=== PATIENT | female | born 1965 | race Hispanic/Latino ===

== ENCOUNTER 2018-02-16 22:25 | Emergency (ER) | payer MEDICAID, SELFPAY ==
[2018-02-17] MEDS: LISINOPRIL 40 MG TAB PO ×2 (00:45)
[2018-02-17] MEDS: amLODIPine 5 MG TAB PO ×2 (00:45)
[2018-02-17] MEDS: CHLORTHALIDONE 12.5MG PER 1/2 TABLET PO ×2 (00:45)
== END 2018-02-17 01:18 | disposition home or self-care (01) ==
LOC: M ED 22:25
DX: Z76.0 Encounter for issue of repeat prescription (principal); I10 Essential (primary) hypertension; E11.9 Type 2 diabetes mellitus without complications; Z79.899 Other long term (current) drug therapy; Z79.84 Long term (current) use of oral hypoglycemic drugs; F17.210 Nicotine dependence, cigarettes, uncomplicated
CPT/HCPCS: 70450

== ENCOUNTER → 2018-06-13 | Outpatient (CLI) | payer OTHER ==
[~2018-06-13] MED LIST: AMLO10TA5 PO; CHLO125TA PO; LIPI10TA PO; LISI40TA PO; METF500T13 PO
[2018-06-13 12:11] LABS: MALB URINE SIEMENS 58.2 MG/L; MAU/CREAT RATIO 34.6 MCG/MG (0.0-30.0)
[2018-06-13 12:26] LABS: HEMOGLOBIN A1c 12.3 %
[2018-06-13 12:42] LABS: ALBUMIN 3.9 GM/DL (3.2-5.2); BLOOD UREA NITROGEN 12 MG/DL (7-18); CALCIUM LEVEL 8.4 MG/DL (8.5-10.1); CARBON DIOXIDE LEVEL 30 MEQ/L (21-32); CHLORIDE LEVEL 96 MEQ/L (98-107); CHOLESTEROL LEVEL 242 MG/DL (<200); CHOLESTEROL RISK RATIO 12.736 (<5); CREATININE FOR GFR 0.67 MG/DL (0.55-1.30); GLOMERULAR FILTRATION RATE > 60.0 (>51); GLUCOSE, FASTING 341 MG/DL (70-100); HDL CHOLESTEROL 19 MG/DL (>40); NON-HDL-C 223 MG/DL; PHOSPHORUS LEVEL 3.5 MG/DL (2.5-4.9); POTASSIUM SERUM 3.3 MEQ/L (3.5-5.1); SODIUM LEVEL 135 MEQ/L (136-145); TRIGLYCERIDES LEVEL 2022 MG/DL (<150)
== END ==
LOC: M LAB 10:57
PROVIDERS: ATTEND Obstetrics & Gynecology
DX: E11.9 Type 2 diabetes mellitus without complications (principal); I10 Essential (primary) hypertension; E78.5 Hyperlipidemia, unspecified

== ENCOUNTER → 2018-08-08 | Outpatient (CLI) | payer OTHER ==
[~2018-08-08] MED LIST changes: +GASTROGRAFIN SOLUTION 30ML (Q9963) As Ordered ONE; +ISOVUE-370 76% 100ML VIAL (Q9967) As Ordered ONE
--- NOTE | 2018-08-10 15:21 | REP ---
Clinical: Epigastric pain. Technique: Axial contrast enhanced images of the abdomen using oral (per protocol) and 100 ml Isovue 370 intravenous contrast material with coronal and sagittal re-formations. Findings: Lung bases are essentially clear. Atherosclerotic changes to the coronary arteries noted without cardiomegaly. Diffuse hepatic steatosis is appreciated without significant focal hepatic lesion. Spleen, pancreas, gallbladder, bilateral adrenal glands and kidneys are normal. Incidental 1 cm left renal hypodensity compatible with cyst. Visualized enteric system is without obstruction or acute inflammatory process. No ascites. No free air. No adenopathy. Abdominal aorta without aneurysm. Visualized skeletal structures intact without focal osseous abnormality. Impression: 1. Hepatic steatosis. 2. 1 cm left renal hypodensity compatible with cyst. 3. Atherosclerotic changes to the visualized coronary arteries and aorta. Electronically Signed by Luis Carlos Frye MD 08/10/2018 03:12 P
== END ==
LOC: M RAD 09:57
PROVIDERS: ATTEND Obstetrics & Gynecology
DX: K76.0 Fatty (change of) liver, not elsewhere classified (principal); I25.10 Atherosclerotic heart disease of native coronary artery without angina pectoris; N28.89 Other specified disorders of kidney and ureter
CPT/HCPCS: 74160; Q9963; Q9967

== ENCOUNTER → 2018-08-24 | Outpatient (CLI) | payer OTHER ==
[~2018-08-24] MED LIST changes: -GASTROGRAFIN SOLUTION 30ML (Q9963) As Ordered ONE; -ISOVUE-370 76% 100ML VIAL (Q9967) As Ordered ONE
[2018-08-24 10:18] LABS: ALBUMIN 4.1 GM/DL (3.2-5.2); ALT/SGPT 57 U/L (12-78); BILIRUBIN,TOTAL 0.4 MG/DL (0.2-1.0); BLOOD UREA NITROGEN 13 MG/DL (7-18); CARBON DIOXIDE LEVEL 34 MEQ/L (21-32); CHLORIDE LEVEL 96 MEQ/L (98-107); CREATININE FOR GFR 0.81 MG/DL (0.55-1.30); GLOMERULAR FILTRATION RATE > 60.0 (>51); GLUCOSE, FASTING 198 MG/DL (70-100); POTASSIUM SERUM 3.3 MEQ/L (3.5-5.1); SODIUM LEVEL 138 MEQ/L (136-145); TOTAL PROTEIN 7.7 GM/DL (6.4-8.2)
--- NOTE | 2018-08-25 19:12 | REP ---
Clinical: Hepatic steatosis. Technique: Real time bridges scale ultrasound examination using curved array transducer. Findings: The liver is diffusely increased echogenicity with poor through transmission suggesting fatty infiltration. No focal hepatic lesion identified. The pancreas is incompletely evaluated due to interposed bowel gas but visualized portions appear normal. The gallbladder is unremarkable and without gallstones, wall thickening, or pericholecystic fluid. No biliary ductal dilatation is appreciated and the common bile duct measures 6.0 mm diameter. The right kidney is normal in reniform shape without hydronephrosis and measures 11.8 x 6.2 x 4.4 cm. Ascites. Impression: 1. Hepatic steatosis without focal hepatic lesion identified. Electronically Signed by Luis Carlos Frye MD 08/25/2018 07:04 P
== END ==
LOC: M RAD 08:49
PROVIDERS: ATTEND Student in an Organized Health Care Education/Training Program
DX: K76.0 Fatty (change of) liver, not elsewhere classified (principal); R10.13 Epigastric pain

== ENCOUNTER → 2018-09-15 | Outpatient (CLI) | payer OTHER ==
[2018-09-15 14:18] LABS: INR 0.92; PROTHROMBIN TIME 12.4 SECONDS (12.1-14.4)
[2018-09-15 14:19] LABS: PARTIAL THROMBOPLASTIN TIME 30.3 SECONDS (25.4-37.6)
[2018-09-15 14:38] LABS: FERRITIN 146 NG/ML (8-252); HEPATITIS B SURFACE ANTIGEN NEGATIVE (NEGATIVE); IRON (FE) 71 UG/DL (50-170)
[2018-09-15 15:02] LABS: HEPATITIS C VIRUS ABY INDEX 0.1 INDEX (<0.8)
[2018-09-15 15:03] LABS: HEPATITIS B CORE ANTIBODY IGM NEGATIVE (NEGATIVE)
[2018-09-15 15:06] LABS: HEPATITIS A ANTIBODY IGM NEGATIVE (NEGATIVE)
== END ==
LOC: M LAB 13:07
PROVIDERS: ATTEND Student in an Organized Health Care Education/Training Program
DX: K76.0 Fatty (change of) liver, not elsewhere classified (principal)

== ENCOUNTER 2019-02-14 17:30 | Emergency (ER) | payer OTHER ==
[~2019-02-14] VITALS: Ht 157.5 cm; Wt 64.7 kg
[2019-02-14] MEDS ORDERED: CYCLOBENZAPRINE 5MG TABLET PO ONE (19:00)
[2019-02-14] MEDS ORDERED: ACETAMINOPHEN 325 MG TAB PO ONE (19:00)
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
[2019-02-14] MEDS ORDERED: CYCL5TAB PO (22:42)
[2019-02-14 22:49] VITALS: BP 125/68
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
--- NOTE | 2019-02-20 12:55 | ED PDOC ---
Post-Departure Follow-Up certified letter sent to pt re formal read of ct abd/p. see report. needs fu . o btain pcp name and fax for fu. if no pcp refer to [facility] and fax there.Debbie Hastings MD Feb 20, 2019 12:55
== END 2019-02-14 22:53 | disposition home or self-care (01) ==
LOC: M ED 17:30
DX: S22.31XA Fracture of one rib, right side, initial encounter for closed fracture (principal); S16.1XXA Strain of muscle, fascia and tendon at neck level, initial encounter; R51 Headache; V43.52XA Car driver injured in collision with other type car in traffic accident, initial encounter; Y92.410 Unspecified street and highway as the place of occurrence of the external cause

== ENCOUNTER 2019-02-15 10:49 | Emergency (ER) | payer OTHER ==
[~2019-02-15] VITALS: Ht 157.5 cm; Wt 65.3 kg
[~2019-02-15 10:49] MED LIST changes: +CYCL5TAB PO
[2019-02-15] MEDS ORDERED: ISOVUE-370 76% 100ML VIAL (Q9967) As Ordered ONE (11:47)
--- NOTE | 2019-02-15 12:49 | REP ---
CT pulmonary angiogram: With IV contrast. History: Question pericardial effusion. Comparison CT study abdomen and pelvis from the previous day. Comparison chest x-ray from February 14, 2019. Contrast dose: 75 ML of Isovue [address] technique: Helical scanning is acquired and overlapping 1.5 mm and contiguous 3 mm axial images are reformatted. In addition, maximum intensity projection and multiplanar re-formation images are generated in sagittal and coronal imaging projections. CT pulmonary angiographic findings: There is good opacification of the pulmonary arterial tree. No filling defect is seen. The thoracic aorta enhances homogeneously and is normal in course and caliber. No aneurysm or dissection is apparent. Is no evidence of mediastinal hematoma. No mass or adenopathy is seen. No pleural effusion is noted. There is however a small to moderate amount of pericardial fluid visible. This is unchanged from yesterday's abdominal CT study. There is more pericardial fluid than can be seen on CT study from August 08, 2018. The lung murdock are clear. There are mild emphysematous changes in the apices. Impression: Small to moderate pericardial effusion seen, increased from August 08, 2018, unchanged from yesterday's abdomen CT study. Etiology uncertain. No mediastinal hematoma seen. No evidence of aortic injury or pulmonary embolus. No traumatic bony abnormality. Electronically Signed by Mukesh Simon MD 02/15/2019 12:41 P
--- NOTE | 2019-02-15 18:20 | ECHO ---
DATE OF PROCEDURE: 02/15/2019 REFERRING PHYSICIAN: Dr. Bae INDICATION: Pericardial effusion. Height 157 cm, weight 65 kg. DIMENSIONS: IVS: 1.3 LV: 4.6 LVPW: 1.3 Aorta: 2.9 LA: 3.5 RV: 2.9 IVC: 1.3 Mitral E wave velocity: 63 A wave: 96 E prime septal: 6.1 E prime lateral: 6.2 FINDINGS: The study is of good technical quality. The patient is in sinus rhythm. Left ventricle is of normal size and systolic function, estimated left ventricular ejection fraction (LVEF) around 70%. Mild left ventricular hypertrophy (LVH) is present. Right ventricle is also normal size and systolic function. Both atria appear normal. Aortic, mitral, tricuspid and pulmonic valves all appear normal. Trace pericardial effusion is noted. There are no signs of cardiac compression. Inferior vena cava is normal size. Aortic root, aortic arch and visualized segment of abdominal aorta all appear normal. Doppler interrogation of aortic valve reveals no stenosis or insufficiency. There is also no significant mitral stenosis or insufficiency. Trace tricuspid insufficiency is seen but quality of TR jet is not sufficiently good in order to estimate pulmonary artery pressure. Pulmonic valve is functionally competent. Mitral inflow pattern and tissue Doppler imaging mitral annulus revealed grade 1 diastolic dysfunction. CONCLUSIONS: 1. The study is of good technical quality. 2. Normal LV size with mild LVH, hyperdynamic LV systolic function and grade 1 diastolic dysfunction. 3. No hemodynamically significant valvular disease. 4. Normal central venous pressure. 5. Trace pericardial effusion. COMMENTS: Subacute bacterial endocarditis (SBE) prophylaxis is not recommended. Results of the echocardiogram were communicated to Dr. Bae in the emergency room. [facility]
[2019-02-15 18:47] VITALS: BP 135/81
--- NOTE | 2019-02-20 12:08 | ED PDOC ---
Post-Departure Follow-Up dr kowalski faxed formal report of cta chest for fu Debbie Petersen MD Feb 20, 2019 12:08
== END 2019-02-15 18:40 | disposition home or self-care (01) ==
LOC: M ED 10:49
DX: I31.3 Pericardial effusion (noninflammatory) (principal); R51 Headache; E78.9 Disorder of lipoprotein metabolism, unspecified; E11.9 Type 2 diabetes mellitus without complications; F17.200 Nicotine dependence, unspecified, uncomplicated; Z79.899 Other long term (current) drug therapy; Z79.84 Long term (current) use of oral hypoglycemic drugs
CPT/HCPCS: 36415; 71275; 80047; 99284; Q9967

== ENCOUNTER 2019-03-29 21:45 | Emergency (ER) | payer OTHER, SELFPAY ==
[~2019-03-29] VITALS: Ht 157.5 cm; Wt 66.2 kg
[2019-03-29 22:20] LABS: BASO # 0.1 10^3/uL (0.0-0.2); BASO % 0.4 % (0.0-1.0); EOS # 0.1 10^3/uL (0.0-0.5); EOS % 0.6 % (0.0-3.0); HEMOGLOBIN 13.7 g/dl (12.0-15.5); LYMPH # 3.2 10^3/uL (1.5-5.0); LYMPH % 21.4 % (24.0-44.0); MEAN CORPUSCULAR HEMOGLOBIN 28.8 pg (27.0-33.0); MEAN CORPUSCULAR HGB CONC 36.1 g/dl (32.0-36.5); MONO # 0.9 10^3/uL (0.0-0.8); MONO % 6.3 % (0.0-5.0); NEUTROPHILS # 10.4 10^3/uL (1.5-8.5); NEUTROPHILS % 70.9 % (36.0-66.0); PLATELET COUNT, AUTOMATED 302 10^3/uL (150-450); RED BLOOD COUNT 4.75 10^6/uL (4.00-5.40); WHITE BLOOD COUNT 14.7 10^3/uL (4.0-10.0)
[2019-03-29 22:54] LABS: BLOOD UREA NITROGEN 15 MG/DL (7-18); CALCIUM LEVEL 9.2 MG/DL (8.5-10.1); CARBON DIOXIDE LEVEL 28 MEQ/L (21-32); CHLORIDE LEVEL 102 MEQ/L (98-107); CK-MB VALUE MASS < 1.0 NG/ML (<3.6); CPK CREATINE PHOSPHOKINASE 102 U/L (26-192); CREATININE FOR GFR 1.41 MG/DL (0.55-1.30); GLOMERULAR FILTRATION RATE 41.2 (>51); GLUCOSE, FASTING 231 MG/DL (70-100); MB/CK RELATIVE INDEX 0.98 (< OR =4); POTASSIUM SERUM 3.3 MEQ/L (3.5-5.1); SODIUM LEVEL 141 MEQ/L (136-145); TROPONIN I < 0.02 NG/ML (< 0.10)
[2019-03-29] MEDS ORDERED: NS 1,000 ML IV ONE (23:15)
[2019-03-30] MEDS ORDERED: ACETAMINOPHEN 500 MG TAB As Ordered ONE (01:42)
[2019-03-30 02:21] LABS: CK-MB VALUE MASS < 1.0 NG/ML (<3.6); CPK CREATINE PHOSPHOKINASE 93 U/L (26-192); MB/CK RELATIVE INDEX 1.08 (< OR =4); TROPONIN I < 0.02 NG/ML (< 0.10)
[2019-03-30 02:41] VITALS: BP 121/79
--- NOTE | 2019-03-30 12:20 | REP ---
Clinical: Shortness of breath and chest pain . Comparison: 02/14/2019 . Technique: PA and lateral. Findings: The mediastinum and cardiac silhouette are normal. The lung murdock the straight scattered chronic changes (right greater than left) without acute consolidation, effusion, or pneumothorax. The skeletal structures are intact and normal. Impression: 1. No acute cardiopulmonary process. Electronically Signed by Luis Carlos Frye MD 03/30/2019 12:12 P
--- NOTE | 2019-03-30 21:25 | ECGEPIP ---
[facility] - ED Test Date: 2019-03-29 Pat Name: LINCOLN REIS Department: Room: - Gender: Female Sales And Events Coordinator: RACHELE : 1965 Requested By: GENOVEVA MUHAMMAD Order Number: [id number] Reading MD: Shelia Francis Measurements Intervals [place] Rate: 95 P: 55 NH: 176 QRS: 38 QRSD: 83 T: 65 QT: 356 QTc: 449 Interpretive Statements SINUS RHYTHM POSSIBLE LEFT ATRIAL ENLARGEMENT POSSIBLE LEFT VENTRICULAR HYPERTROPHY NONSPECIFIC T-WAVE ABNORMALITY NO PRIOR Electronically Signed on 03-30-2019 21:25:02 EDT by Shelia Francis
--- NOTE | 2019-03-30 21:26 | ECGEPIP ---
[facility] - ED Test Date: 2019-03-30 Pat Name: LINCOLN REIS Department: Room: - Gender: Female Services Delivery Driver: wv : 1965 Requested By: GENOVEVA MUHAMMAD Order Number: [id number] Reading MD: Shelia Francis Measurements Intervals [place] Rate: 83 P: 52 OR: 176 QRS: 25 QRSD: 85 T: 63 QT: 376 QTc: 443 Interpretive Statements SINUS RHYTHM NONSPECIFIC T-WAVE ABNORMALITY DECREASED RATE 03/29/19 Electronically Signed on 03-30-2019 21:25:55 EDT by Shelia Francis
== END 2019-03-30 02:42 | disposition home or self-care (01) ==
LOC: M ED 21:45
DX: E86.0 Dehydration (principal); E11.9 Type 2 diabetes mellitus without complications; I10 Essential (primary) hypertension; K21.9 Gastro-esophageal reflux disease without esophagitis; Z79.899 Other long term (current) drug therapy; Z79.84 Long term (current) use of oral hypoglycemic drugs; F17.210 Nicotine dependence, cigarettes, uncomplicated

== ENCOUNTER 2023-04-22 17:38 | Emergency (ER) | payer MEDICAID, OTHER, SELFPAY ==
[~2023-04-22] VITALS: Ht 157.5 cm; Wt 64.6 kg
[~2023-04-22 17:38] MED LIST changes: -AMLO10TA5 PO; +AMLO1TAB25 PO; -LISI40TA PO; +LISI40TA4 PO
[2023-04-22] MEDS ORDERED: LISI10TA22 PO (17:51)
[2023-04-22] MEDS ORDERED: KETOROLAC 60MG 2ML VIAL IM ONE (19:55)
[2023-04-22] MEDS ORDERED: methocarbamoL 500 MG TAB PO ONE (19:55)
[2023-04-22] MEDS ORDERED: METH-1164 PO (21:25)
[2023-04-22] MEDS ORDERED: MEDR4PAK PO (21:25)
[2023-04-22 21:47] VITALS: BP 135/82; TEMP 97; O2SAT 97
== END 2023-04-22 21:50 | disposition home or self-care (01) ==
LOC: M ED 17:38
DX: M54.9 Dorsalgia, unspecified (principal); E11.9 Type 2 diabetes mellitus without complications; I10 Essential (primary) hypertension; E78.5 Hyperlipidemia, unspecified; K21.9 Gastro-esophageal reflux disease without esophagitis; F17.200 Nicotine dependence, unspecified, uncomplicated; Z79.899 Other long term (current) drug therapy
CPT/HCPCS: 72072; 96372; 99283; J1885

== ENCOUNTER → 2025-02-15 | Outpatient (CLI) | payer OTHER ==
[~2025-02-15] MED LIST changes: -CYCL5TAB PO; +CYCL5TAB4 PO; +LISI10TA22 PO; +LISI40TA10 PO; -LISI40TA4 PO; +MEDR4PAK PO; +METH-1164 PO
== END ==
LOC: M SOG 07:31
PROVIDERS: ATTEND Orthopaedic Surgery
DX: M25.531 Pain in right wrist (principal); M25.532 Pain in left wrist

== ENCOUNTER → 2025-02-28 | Outpatient (REF) | payer OTHER, MEDICAID ==
[2025-02-28 14:28] LABS: BASO # 0.1 10^3/uL (0.0-0.2); BASO % 0.7 % (0.0-1.0); EOS # 0.1 10^3/uL (0.0-0.5); EOS % 1.3 % (0.0-3.0); LYMPH # 3.8 10^3/uL (1.5-5.0); LYMPH % 46.3 % (24.0-44.0); MONO # 0.6 10^3/uL (0.0-0.8); MONO % 7.6 % (2.0-8.0); NEUTROPHILS # 3.6 10^3/uL (1.5-8.5); NEUTROPHILS % 43.9 % (36.0-66.0); PLATELET COUNT, AUTOMATED 256 10^3/uL (150-450)
[2025-02-28 14:40] LABS: ALT/SGPT 27 U/L (7.0-40); AST/SGOT 16 U/L (<34); CALCIUM LEVEL 9.5 MG/DL (8.3-10.6); CARBON DIOXIDE LEVEL 31 MMOL/L (20-31); CHLORIDE LEVEL 97 MMOL/L (98-107); CHOLESTEROL LEVEL 323 MG/DL (<200); CHOLESTEROL RISK RATIO 9.50 (<5); CREATININE FOR GFR 0.53 MG/DL (0.55-1.30); GLOMERULAR FILTRATION RATE > 90.0 (>45); NON-HDL-C 289.0 MG/DL; POTASSIUM SERUM 3.9 MMOL/L (3.5-5.1); SODIUM LEVEL 138 MMOL/L (136-145); TRIGLYCERIDES LEVEL 1344 MG/DL (<150)
[2025-02-28 16:45] LABS: ESTIMATED AVERAGE GLUCOSE 235.0 MG/DL (60-110)
== END ==
LOC: M LAB REF 13:36
PROVIDERS: ATTEND Nurse Practitioner Family
DX: E66.811 Obesity, class 1 (principal); R53.83 Other fatigue

== ENCOUNTER → 2025-03-07 | Outpatient (CLI) | payer OTHER | LOC: M RAD 08:17 | PROVIDERS: ATTEND Nurse Practitioner Family | DX: K43.2 Incisional hernia without obstruction or gangrene (principal) ==

== ENCOUNTER → 2025-03-12 | Outpatient (CLI) | payer OTHER | LOC: M RAD 11:39 | PROVIDERS: ATTEND Orthopaedic Surgery | DX: M25.531 Pain in right wrist (principal); M25.532 Pain in left wrist ==

== ENCOUNTER → 2025-03-15 | Outpatient (REF) | payer OTHER, MEDICAID ==
[2025-03-15 12:49] LABS: CREATININE, URINE 164.2 MG/DL; MALB URINE SIEMENS 38.0 MG/L; MAU/CREAT RATIO 23.1 MCG/MG (0.0-30.0)
== END ==
LOC: M LAB REF 11:44
PROVIDERS: ATTEND Nurse Practitioner Family
DX: E11.649 Type 2 diabetes mellitus with hypoglycemia without coma (principal); R76.12 Nonspecific reaction to cell mediated immunity measurement of gamma interferon antigen response without active tuberculosis

== ENCOUNTER → 2025-03-18 | Outpatient (CLI) | payer OTHER | LOC: M RAD 10:09 | PROVIDERS: ATTEND Nurse Practitioner Family | DX: Z12.2 Encounter for screening for malignant neoplasm of respiratory organs (principal); F17.210 Nicotine dependence, cigarettes, uncomplicated; I25.10 Atherosclerotic heart disease of native coronary artery without angina pectoris; J43.9 Emphysema, unspecified ==

== ENCOUNTER → 2025-03-22 | Outpatient (CLI) | payer OTHER | LOC: M WHC 10:03 | PROVIDERS: ATTEND Nurse Practitioner Family | DX: Z12.31 Encounter for screening mammogram for malignant neoplasm of breast (principal) ==

== ENCOUNTER → 2025-04-02 | Outpatient (CLI) | payer OTHER ==
[~2025-04-02] MED LIST changes: +GASTROGRAFIN SOLUTION 30 ML As Ordered ONE; +ISOVUE-370 76% 100 ML VIAL As Ordered ONE
== END ==
LOC: M RAD 13:40
PROVIDERS: ATTEND Nurse Practitioner Family
DX: R93.5 Abnormal findings on diagnostic imaging of other abdominal regions, including retroperitoneum (principal); J98.4 Other disorders of lung; I25.10 Atherosclerotic heart disease of native coronary artery without angina pectoris; K76.0 Fatty (change of) liver, not elsewhere classified
CPT/HCPCS: 74160; Q9963; Q9967

== ENCOUNTER → 2025-04-11 | Outpatient (CLI) | payer OTHER ==
[~2025-04-11] MED LIST changes: -GASTROGRAFIN SOLUTION 30 ML As Ordered ONE; -ISOVUE-370 76% 100 ML VIAL As Ordered ONE
== END ==
LOC: M WHC 07:46
PROVIDERS: ATTEND Nurse Practitioner Family
DX: Z12.31 Encounter for screening mammogram for malignant neoplasm of breast (principal)